=== PATIENT | female | born 1970 | race Caucasian/White ===

== ENCOUNTER 2018-03-18 12:05 | Emergency (ER) | payer OTHER ==
[~2018-03-18] VITALS: Ht 177.8 cm; Wt 117.2 kg
[2018-03-18 12:23] LABS: HEMATOCRIT 39.1 % (36.0-46.0); HEMOGLOBIN 12.7 G/DL (11.9-15.5); MCH 30.4 PG (29.0-34.0); MCHC 32.5 G/DL (30.0-36.0); MCV 93.5 FL (83-99); PLATELET COUNT 346 K/uL (156-360); RBC DIS.WIDTH-CV 12.4 % (11.8-14.6); RBC DIS.WIDTH-SD 42.7 % (39-53); RED BLOOD COUNT 4.18 M/uL (3.80-5.20); WHITE BLOOD COUNT 10.7 K/uL (4.1-10.2)
[2018-03-18 12:30] LABS: ALBUMIN 4.2 g/dL (3.2-4.8)
[2018-03-18 12:31] LABS: CHLORIDE 104 mEq/L (99-109); POTASSIUM 4.6 mEq/L (3.7-5.4); SODIUM 140 mEq/L (136-147)
[2018-03-18 12:33] LABS: GLUCOSE 100 mg/dL (70-99); TOTAL PROTEIN 7.4 g/dL (6.4-8.3)
[2018-03-18 12:35] LABS: TOTAL BILIRUBIN 0.5 mg/dL (0.0-1.0)
[2018-03-18 12:36] LABS: ALKALINE PHOSPHATASE 74 IU/L (3-129)
[2018-03-18 12:37] LABS: CREATININE 0.7 mg/dL (0.6-1.3); GFR ESTIMATE (CALCULATED) > 59 mL/min/
[2018-03-18 12:38] LABS: AST (GOT) 24 IU/L (2-34); UREA NITROGEN (BUN) 13 mg/dL (9-23)
[2018-03-18 12:39] LABS: ALT (GPT) 26 IU/L (3-49)
[2018-03-18 12:45] LABS: QUANTITATIVE HCG < 4.0 MIU/ML
[2018-03-18 16:13] LABS: APPEARANCE SL.HAZY ((CLEAR)); BILIRUBIN NEGATIVE; BLOOD NEGATIVE; COLOR YELLOW ((YELLOW)); GLUCOSE (STRIP) NEGATIVE; KETONES 20; LEUKOCYTES NEGATIVE; NITRITE NEGATIVE; PROTEIN (STRIP) 30; SPECIFIC GRAVITY 1.035 (1.000-1.030); UROBILINOGEN 0.2 MG/DL (0.2-1.0)
[2018-03-18 16:39] LABS: BACTERIA 1+ /HPF; EPITHELIAL CELLS 1+ /HPF; MUCUS 1+ /LPF; RED BLOOD CELLS 0-5 /HPF (0-5); UCUL ADDED? NO; WHITE BLOOD CELLS 0-5 /HPF (0-5)
[2018-03-18] MEDS ORDERED: PERCOCET 5/31 TABLET PO (17:13)
[2018-03-18 17:36] VITALS: BP 148/73
== END 2018-03-18 17:36 | disposition home or self-care (01) ==
LOC: EME 12:05
DX: N83.202 Unspecified ovarian cyst, left side (principal); R10.32 Left lower quadrant pain; Z90.710 Acquired absence of both cervix and uterus
CPT/HCPCS: 74177; 76856; 80053; 81003; 84702; 85027; 99281; 99285; J1885; J7030

== ENCOUNTER 2018-05-15 21:02 | Emergency (ER) | payer OTHER ==
[~2018-05-15] VITALS: Ht 177.8 cm; Wt 115.9 kg
[~2018-05-15 21:02] MED LIST: PERCOCET 5/31 TABLET PO
[2018-05-15 21:05] VITALS: BP 136/95
[2018-05-15 22:20] LABS: HEMATOCRIT 37.5 % (36.0-46.0); HEMOGLOBIN 12.3 G/DL (11.9-15.5); MCH 30.3 PG (29.0-34.0); MCHC 32.8 G/DL (30.0-36.0); MCV 92.4 FL (83-99); PLATELET COUNT 336 K/uL (156-360); RBC DIS.WIDTH-CV 12.4 % (11.8-14.6); RBC DIS.WIDTH-SD 42.3 % (39-53); RED BLOOD COUNT 4.06 M/uL (3.80-5.20); WHITE BLOOD COUNT 12.9 K/uL (4.1-10.2)
[2018-05-15 22:30] LABS: APPEARANCE CLEAR ((CLEAR)); BILIRUBIN NEGATIVE; BLOOD NEGATIVE; COLOR STRAW ((YELLOW)); GLUCOSE (STRIP) NEGATIVE; KETONES NEGATIVE; LEUKOCYTES NEGATIVE; NITRITE NEGATIVE; PROTEIN (STRIP) NEGATIVE; SPECIFIC GRAVITY 1.013 (1.000-1.030); UCUL ADDED? NO; UROBILINOGEN 0.2 MG/DL (0.2-1.0)
[2018-05-15 22:30] LABS: CHLORIDE 107 mEq/L (99-109); SODIUM 142 mEq/L (136-147)
[2018-05-15 22:32] LABS: GLUCOSE 103 mg/dL (70-99)
[2018-05-15 22:36] LABS: CREATININE 0.8 mg/dL (0.6-1.3); GFR ESTIMATE (CALCULATED) > 59 mL/min/
[2018-05-15 22:37] LABS: UREA NITROGEN (BUN) 18 mg/dL (9-23)
[2018-05-16] MEDS ORDERED: CIPRO500 MG PO (00:27)
[2018-05-16] MEDS ORDERED: FLAGYL500 MG PO (00:27)
[2018-05-16] MEDS ORDERED: PERCOCET 5/31 TABLET PO (00:30)
== END 2018-05-16 02:21 | disposition home or self-care (01) ==
LOC: EME 21:02
PROVIDERS: Nurse Practitioner Family
DX: K57.32 Diverticulitis of large intestine without perforation or abscess without bleeding (principal); R10.32 Left lower quadrant pain; N83.201 Unspecified ovarian cyst, right side; Z87.442 Personal history of urinary calculi
CPT/HCPCS: 74177; 76856; 80048; 81003; 85027; 99281; 99284; J1885; J2405; J7030